=== PATIENT | female | born 1935 | race Caucasian/White ===

== ENCOUNTER 2023-06-15 21:09 | Emergency (ER) | payer MEDICARE, SELFPAY ==
[2023-06-15 21:16] VITALS: BP 144/74; PULSE 97; RESP 16; TEMP 37.7; O2SAT 95; BMI 39.9
--- NOTE | 2023-06-15 21:18 | CT_ITS ---
The [address] [address] Patient Name: DB PRADHAN MRN: [id number] date: 1935 Sex: F Assigned Patient Location: ER Current Patient Location: Accession/Order Number: [id number] Exam Date: 06/15/2023 22:43 Report Date: 06/15/2023 23:22 At the request of: WILLIE CH Procedure: CT abdomen pelvis w con CT OF THE ABDOMEN AND PELVIS WITH CONTRAST: 06/15/2023 10:43 PM EST CLINICAL HISTORY: Diarrhea. COMPARISONS: None. TECHNIQUE: Thin section axial CT images were obtained from the lung bases to the pubis symphysis. This CT exam was performed using one or more of the following dose reduction techniques: Automated exposure control, adjustment of the mA and/or kV according to patient size, or use of iterative reconstruction technique. Thin section coronal and sagittal images were reconstructed from the axial data set. All images were reviewed and interpreted. CONTRAST: Intravenous contrast was administered. Type and amount is documented at the local institution. FINDINGS: LUNG BASES: No consolidation or pleural fluid. Calcified right hilar lymph nodes. Mitral valvular calcifications. Mild cardiac chamber enlargement. LIVER: Severe diffuse hepatic steatosis. Scattered punctate calcified granulomas. No liver mass or cyst. GALLBLADDER: Cholecystectomy. BILIARY TREE: No ductal dilatation. PANCREAS: Normal. SPLEEN: Scattered calcified splenic granulomas. Spleen otherwise negative. ADRENALS: Normal. KIDNEYS: Normal, without urolithiasis or hydronephrosis. URINARY BLADDER: Grossly unremarkable. PELVIC STRUCTURES: Unremarkable. BOWEL: Scattered fluid filled nondistended small bowel loops and fluid within nondistended proximal right colon. No overt wall thickening of small or large bowel. No luminal filling defects. There is extensive mostly descending sigmoid diverticulosis. There is no evidence of diverticulitis. APPENDIX: Negative. LYMPH NODES: No pathologically enlarged lymph nodes identified. PERITONEUM: No intraperitoneal free air. No free intraperitoneal fluid. MESENTERY: Unremarkable. RETROPERITONEUM: The retroperitoneum is unremarkable. AORTA: Normal in caliber. IVC: Retroverted coarse left renal vein. BODY WALL: No body wall mass. OSSEOUS STRUCTURES: Left hip arthroplasty. 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 Diffuse endplate spondylosis and facet arthropathy. No lytic or blastic bone lesion or acute fracture. CT/CT abdomen pelvis w con IMPRESSION: 1. Nonspecific bowel appearance with fluid in nondistended small bowel loops and right hemicolon, likely reflecting some nonspecific secretory diarrhea. Uncertain etiology. 2. Colonic diverticulosis. No acute diverticulitis. 3. Hepatic steatosis. 4. Cholecystectomy. 5. 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 Electronically authenticated by: LISBET CASSIDY Date: 06/15/2023 23:22
--- NOTE | 2023-06-15 21:19 | ED.NAVMDI1 ---
Documented by User: [email or web address] Shi 06/15/23 21:23 HPI - Nausea/Vomiting/Diarrhea General Chief complaint: Nausea/Vomiting/Diarrhea Stated complaint: NAUSEA Time Seen by Provider: 06/15/23 21:17 History of Present Illness HPI Narrative: Patient is an 87-year-old female who presents to the emergency department by ambulance for the evaluation of vomiting and diarrhea throughout the day today. She states the diarrhea is much more significant than the vomiting. She reports approximately 6 episodes of vomiting throughout the day today, she states she is having diarrhea at least every 20 minutes. She states the diarrhea is now very watery. She recently received an iron infusion and her stools have been black, this is not new today. She does have cramping in the abdomen. 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 She states the incision broke open before today and has been slow healing, this is known to her physician. She states today with all the diarrhea and abdominal cramping, she is having increased pain to the area of the vulva surgical incision dehiscence. She states her daughter and son-in-law are also sick with the same symptoms, they were at a libertarian over the weekend. Patient has had a previous cholecystectomy and hysterectomy. She has never had any issues with colitis or diverticulitis. No objective fevers or upper respiratory symptoms. She denies chest pain. Related Data Home Medications Medication Instructions Recorded Confirmed acyclovir 5 % topical cream 1 applic topical PRN 06/15/23 06/15/23 bisoprolol 5 1 tab PO QDAY 06/15/23 06/15/23 mg-hydrochlorothiazide 6.25 mg tablet celecoxib 200 mg capsule 200 mg PO Q24H 06/15/23 06/15/23 conjugated estrogens 0.625 mg/gram 0.625 mg vaginal .2 x weekly 06/15/23 06/15/23 vaginal cream (Premarin) famciclovir 250 mg tablet 250 mg PO Q12H 06/15/23 06/15/23 furosemide 20 mg tablet 20 mg PO DAILY 06/15/23 06/15/23 gabapentin 100 mg capsule 100 mg PO Q8H 06/15/23 06/15/23 lidocaine-prilocaine 2.5 %-2.5 % 1 applic topical PRN 06/15/23 06/15/23 topical cream pantoprazole 40 mg tablet,delayed 40 mg PO DAILY 06/15/23 06/15/23 release rosuvastatin 10 mg tablet 10 mg PO DAILY 06/15/23 06/15/23 triamcinolone acetonide 0.5 % 1 applic topical PRN 06/15/23 06/15/23 topical cream Previous Rx's Medication Instructions Recorded ondansetron 4 mg disintegrating 4 mg PO Q6H PRN nausea and 06/15/23 tablet vomiting #14 tabs Allergies Allergy/AdvReac Type Severity Reaction Status Date / Time Sulfa (Sulfonamide Allergy Verified 06/15/23 21:14 Antibiotics) Review of Systems ROS Constitutional Denies: fever or chills Ears, nose, mouth, and throat Denies: throat pain or nasal congestion Cardiovascular Denies: chest pain Respiratory Denies: shortness of breath or cough Gastrointestinal Reports: abdominal pain, nausea, vomiting and diarrhea Genitourinary Reports: pelvic pain; Denies: painful urination Musculoskeletal Denies: back pain Integumentary/Breast Denies: rash Neurological Denies: headache Endocrine Denies: excessive urination [facility] Social History Smoking status: Never smoker Exam Narrative Exam Narrative: Gen.: Awake, alert, in no distress Head: Normocephalic, atraumatic ENT: Moist mucous membranes Respiratory: No respiratory distress, lungs clear bilaterally Cardio: Regular rate and rhythm Gastrointestinal: Abdomen is soft, Distended without rigidity and nontender to palpation, no guarding or rebound Extremities: Moves extremities equally Psych: Normal mood and affect Neuro: No focal neuro deficit Skin: Warm, dry, intact Constitutional Vital Signs, click to edit/add: Last Vital Signs Temp 99.8 F 06/15/23 21:16 Pulse 97 H 06/15/23 21:16 Resp 16 06/15/23 21:16 BP 150/78 H 06/15/23 21:55 Pulse Ox 96 06/15/23 23:14 O2 Del Method Room Air 06/15/23 23:14 O2 Flow Rate 1 06/15/23 21:55 Course Vital Signs Vital signs: Vital Signs Temperature 99.8 F 06/15/23 21:16 Pulse Rate 97 H 06/15/23 21:16 Respiratory Rate 16 06/15/23 21:16 Blood Pressure 144/74 H 06/15/23 21:16 Pulse Oximetry 95 06/15/23 21:16 Oxygen Delivery Method Nasal Cannula 06/15/23 21:16 Oxygen Delivery Flow Rate 2 06/15/23 21:16 Temperature 99.8 F 06/15/23 21:16 Pulse Rate 97 H 06/15/23 21:16 Respiratory Rate 16 06/15/23 21:16 Blood Pressure 150/78 H 06/15/23 21:55 Pulse Oximetry 96 06/15/23 23:14 Oxygen Delivery Method Room Air 06/15/23 23:14 Oxygen Delivery Flow Rate 1 06/15/23 21:55 MDM - Nausea/Vomiting/Diarrhea MDM Narrative Medical decision making narrative: 2121: I ordered for this patient to have IV fluids, pain medication, nausea medication as well as lab testing, urine testing, stool testing, CT of the abdomen and pelvis. At this time her vital signs are stable. She was placed on a nasal cannula by EMS. All of the patient's results are pending at this time and case will be turned over to attending physician for disposition. Medical Records Attestation: I reviewed the patient's medical records. Lab Data Attestation: I reviewed the patient's lab results. Labs: Lab Results 06/15/23 06/15/23 06/15/23 Range/Units 21:34 21:35 21:49 WBC 8.4 (4.0-11.0) 10^3/uL RBC 3.32 L (4.20-5.40) 10^6/uL Hgb 10.5 L (12.0-16.0) g/dL Hct 35.0 L (36.0-48.0) % MCV 105.4 H (81.0-99.0) fL MCH 31.6 (26.7-34.0) pg MCHC 30.0 (29.9-35.2) g/dL RDW 23.6 H (11.0-15.0) % Plt Count 167 (150-450) 10^3/uL MPV 9.3 L (9.5-13.5) fL Seg Neuts % (Manual) 89.0 Band Neutrophils % 9.0 H (0-5) % Lymphocytes % (Manual) 1.0 L (20.5-60.0) % Monocytes % (Manual) 1.0 L (1.7-12.0) % Eosinophils % (Manual) 0.0 L (0.9-7.0) % Basophils % (Manual) 0.0 L (0.2-2.0) % Neutrophils # (Manual) 7.47 H (1.4-6.5) 10^3/uL Band Neutrophils # 0.8 H (0.0-0.3) 10^3/uL Lymphocytes # (Manual) 0.08 L (1.20-3.80) 10^3/uL Monocytes # (Manual) 0.08 L (0.30-0.80) 10^3/uL Eosinophils # (Manual) 0.00 (0.00-0.70) 10^3/uL Basophils # (Manual) 0.00 (0.00-0.10) 10^3/uL Sodium 142 (136-145) mmol/L Potassium 3.5 (3.5-5.1) mmol/L Chloride 107 (98-107) mmol/L Carbon Dioxide 23.5 (21.0-32.0) mmol/L Anion Gap 15.0 BUN 36.0 H (7.0-18.0) mg/dL Creatinine 1.31 H (0.55-1.02) mg/dL Est GFR ( Amer) 46 L (>=60) Est GFR (Non-Af Amer) 38 L (>=60) BUN/Creatinine Ratio 27.5 Glucose 142 H (74-106) mg/dL Lactate 1.6 (0.4-2.0) mmol/L Calcium 8.4 L (8.5-10.1) mg/dL Total Bilirubin 0.3 (0.2-1.0) mg/dL AST 22 (15-37) U/L ALT 24 (14-59) U/L Alkaline Phosphatase 43 L (46-116) U/L Total Protein 7.0 (6.4-8.2) g/dL Albumin 3.1 L (3.4-5.0) g/dL Globulin 3.9 g/dL Albumin/Globulin Ratio 0.8 Lipase 26.0 (16.0-77.0) U/L Stl C. cayetanensis PCR Not detected (NOT DETECTE) Stool Rotavirus (PCR) Not detected (NOT DETECTE) Stool Adenovirus (PCR) Not detected (NOT DETECTE) Stool Astrovirus (PCR) Not detected (NOT DETECTE) Stool Campylobacter PCR Not detected (NOT DETECTE) Stool Cryptosporidium PCR Not detected (NOT DETECTE) St Sh/Enteroin Ecoli PCR Not detected (NOT DETECTE) Stl Enterotoxigenic E PCR Not detected (NOT DETECTE) Stool EPEC (PCR) Not detected (NOT DETECTE) Stl E. histolytica PCR Not detected (NOT DETECTE) Stool Giardia Lamblia PCR Not detected (NOT DETECTE) Stl P. shigelloides PCR Not detected (NOT DETECTE) Stool Salmonella PCR Not detected (NOT DETECTE) Stool Sapovirus (PCR) Not detected (NOT DETECTE) Stl Shiga-like Tx 1 PCR Not detected (NOT DETECTE) St Y.enterocolitica PCR Not detected (NOT DETECTE) Stl Vibrio cholerae PCR Not detected (NOT DETECTE) Stl Enteroaggr Ecoli PCR Not detected (NOT DETECTE) Stl Norovirus GI/GII PCR Detected A (NOT DETECTE) C. difficile Toxin A&B Not detected (NOT DETECTE) Influenza Type A Ag Negative Influenza Type B Ag Negative SARS-CoV-2 Ag (CV2AG) Negative (NEGATIVE) Vibrio Culture Not detected (NOT DETECTE) Imaging Data CT scan - abdomen: Radiologist's impression: ITS Impressions Abdomen/Pelvis CT 06/15/23 21:18 IMPRESSION: 1. Nonspecific bowel appearance with fluid in nondistended small bowel loops and right hemicolon, likely reflecting some nonspecific secretory diarrhea. Uncertain etiology. 2. Colonic diverticulosis. No acute diverticulitis. 3. Hepatic steatosis. 4. Cholecystectomy. 5. 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 Electronically authenticated by: LISBET CASSIDY Date: 06/15/2023 23:22 Discharge Plan Discharge Chief Complaint: Nausea/Vomiting/Diarrhea Clinical Impression: Gastroenteritis Patient Disposition: Home, Self-Care Time of Disposition Decision: 23:33 Prescriptions / Home Meds: New ondansetron 4 mg tablet,disintegrating 4 mg PO Q6H PRN (Reason: nausea and vomiting) Qty: 14 0RF No Action bisoprolol-hydrochlorothiazide 5-6.25 mg tablet 1 tab PO QDAY celecoxib 200 mg capsule 200 mg PO Q24H Premarin 0.625 mg/gram cream 0.625 mg vaginal .2 x weekly famciclovir 250 mg tablet 250 mg PO Q12H furosemide 20 mg tablet 20 mg PO DAILY lidocaine-prilocaine 2.5-2.5 % cream 1 applic topical PRN pantoprazole 40 mg tablet,delayed release (DR/EC) 40 mg PO DAILY rosuvastatin 10 mg tablet 10 mg PO DAILY triamcinolone acetonide 0.5 % cream 1 applic TOPICAL PRN acyclovir 5 % cream 1 applic TOPICAL PRN gabapentin 100 mg capsule 100 mg PO Q8H Instructions: Clear Liquid Diet (ED), Gastroenteritis (ED) Stand Alone Forms: Portal Instructions Documented by User: Matthieu Bae 06/15/23 23:34 HPI - Nausea/Vomiting/Diarrhea General Chief complaint: Nausea/Vomiting/Diarrhea Stated complaint: NAUSEA Time Seen by Provider: 06/15/23 21:17 Related Data Home Medications Medication Instructions Recorded Confirmed acyclovir 5 % topical cream 1 applic topical PRN 06/15/23 06/15/23 bisoprolol 5 1 tab PO QDAY 06/15/23 06/15/23 mg-hydrochlorothiazide 6.25 mg tablet celecoxib 200 mg capsule 200 mg PO Q24H 06/15/23 06/15/23 conjugated estrogens 0.625 mg/gram 0.625 mg vaginal .2 x weekly 06/15/23 06/15/23 vaginal cream (Premarin) famciclovir 250 mg tablet 250 mg PO Q12H 06/15/23 06/15/23 furosemide 20 mg tablet 20 mg PO DAILY 06/15/23 06/15/23 gabapentin 100 mg capsule 100 mg PO Q8H 06/15/23 06/15/23 lidocaine-prilocaine 2.5 %-2.5 % 1 applic topical PRN 06/15/23 06/15/23 topical cream pantoprazole 40 mg tablet,delayed 40 mg PO DAILY 06/15/23 06/15/23 release rosuvastatin 10 mg tablet 10 mg PO DAILY 06/15/23 06/15/23 triamcinolone acetonide 0.5 % 1 applic topical PRN 06/15/23 06/15/23 topical cream Previous Rx's Medication Instructions Recorded ondansetron 4 mg disintegrating 4 mg PO Q6H PRN nausea and 06/15/23 tablet vomiting #14 tabs Allergies Allergy/AdvReac Type Severity Reaction Status Date / Time Sulfa (Sulfonamide Allergy Verified 06/15/23 21:14 Antibiotics) [facility] Social History Smoking status: Never smoker Exam Constitutional Vital Signs, click to edit/add: Last Vital Signs Temp 99.8 F 06/15/23 21:16 Pulse 97 H 06/15/23 21:16 Resp 16 06/15/23 21:16 BP 150/78 H 06/15/23 21:55 Pulse Ox 96 06/15/23 23:14 O2 Del Method Room Air 06/15/23 23:14 O2 Flow Rate 1 06/15/23 21:55 Course Vital Signs Vital signs: Vital Signs Temperature 99.8 F 06/15/23 21:16 Pulse Rate 97 H 06/15/23 21:16 Respiratory Rate 16 06/15/23 21:16 Blood Pressure 144/74 H 06/15/23 21:16 Pulse Oximetry 95 06/15/23 21:16 Oxygen Delivery Method Nasal Cannula 06/15/23 21:16 Oxygen Delivery Flow Rate 2 06/15/23 21:16 Temperature 99.8 F 06/15/23 21:16 Pulse Rate 97 H 06/15/23 21:16 Respiratory Rate 16 06/15/23 21:16 Blood Pressure 150/78 H 06/15/23 21:55 Pulse Oximetry 96 06/15/23 23:14 Oxygen Delivery Method Room Air 06/15/23 23:14 Oxygen Delivery Flow Rate 1 06/15/23 21:55 MDM - Nausea/Vomiting/Diarrhea MDM Narrative Medical decision making narrative: 2121: I ordered for this patient to have IV fluids, pain medication, nausea medication as well as lab testing, urine testing, stool testing, CT of the abdomen and pelvis. At this time her vital signs are stable. She was placed on a nasal cannula by EMS. All of the patient's results are pending at this time and case will be turned over to attending physician for disposition. For this patient encounter I reviewed the mid-level provider?s documentation, medical decision-making and treatment plan, and I personally spent time with this patient. Shared APC visit, physician attestation: [id number]: This visit was performed by both a physician and an APC. I personally evaluated and examined the patient. I performed all aspects of MDM as documented. - Betty, DO The patient was exposed to a family member with similar symptoms who had been ill about 12 hours earlier. Exam is without any worrisome findings. Unremarkable CBC with normal white blood cell count and hemoglobin 10.5. Swabs for COVID and influenza were negative. Lactate negative. CMP notable for normal LFTs, unremarkable electrolytes, increased BUN/creatinine at 36 and 1.3, glucose 142. GI panel is pending. CT abdomen pelvis = findings consistent with the patient's symptoms of gastroenteritis without any sign of obstruction or other acutely worrisome abnormalities. Results explained to the patient. She felt better after emergency department discharge and was able to be discharged home with prescription for Zofran. We also discussed clear liquid diet and reasons to return to the emergency department Lab Data Labs: Lab Results 06/15/23 06/15/23 06/15/23 Range/Units 21:34 21:35 21:49 WBC 8.4 (4.0-11.0) 10^3/uL RBC 3.32 L (4.20-5.40) 10^6/uL Hgb 10.5 L (12.0-16.0) g/dL Hct 35.0 L (36.0-48.0) % MCV 105.4 H (81.0-99.0) fL MCH 31.6 (26.7-34.0) pg MCHC 30.0 (29.9-35.2) g/dL RDW 23.6 H (11.0-15.0) % Plt Count 167 (150-450) 10^3/uL MPV 9.3 L (9.5-13.5) fL Seg Neuts % (Manual) 89.0 Band Neutrophils % 9.0 H (0-5) % Lymphocytes % (Manual) 1.0 L (20.5-60.0) % Monocytes % (Manual) 1.0 L (1.7-12.0) % Eosinophils % (Manual) 0.0 L (0.9-7.0) % Basophils % (Manual) 0.0 L (0.2-2.0) % Neutrophils # (Manual) 7.47 H (1.4-6.5) 10^3/uL Band Neutrophils # 0.8 H (0.0-0.3) 10^3/uL Lymphocytes # (Manual) 0.08 L (1.20-3.80) 10^3/uL Monocytes # (Manual) 0.08 L (0.30-0.80) 10^3/uL Eosinophils # (Manual) 0.00 (0.00-0.70) 10^3/uL Basophils # (Manual) 0.00 (0.00-0.10) 10^3/uL Sodium 142 (136-145) mmol/L Potassium 3.5 (3.5-5.1) mmol/L Chloride 107 (98-107) mmol/L Carbon Dioxide 23.5 (21.0-32.0) mmol/L Anion Gap 15.0 BUN 36.0 H (7.0-18.0) mg/dL Creatinine 1.31 H (0.55-1.02) mg/dL Est GFR ( Amer) 46 L (>=60) Est GFR (Non-Af Amer) 38 L (>=60) BUN/Creatinine Ratio 27.5 Glucose 142 H (74-106) mg/dL Lactate 1.6 (0.4-2.0) mmol/L Calcium 8.4 L (8.5-10.1) mg/dL Total Bilirubin 0.3 (0.2-1.0) mg/dL AST 22 (15-37) U/L ALT 24 (14-59) U/L Alkaline Phosphatase 43 L (46-116) U/L Total Protein 7.0 (6.4-8.2) g/dL Albumin 3.1 L (3.4-5.0) g/dL Globulin 3.9 g/dL Albumin/Globulin Ratio 0.8 Lipase 26.0 (16.0-77.0) U/L Stl C. cayetanensis PCR Not detected (NOT DETECTE) Stool Rotavirus (PCR) Not detected (NOT DETECTE) Stool Adenovirus (PCR) Not detected (NOT DETECTE) Stool Astrovirus (PCR) Not detected (NOT DETECTE) Stool Campylobacter PCR Not detected (NOT DETECTE) Stool Cryptosporidium PCR Not detected (NOT DETECTE) St Sh/Enteroin Ecoli PCR Not detected (NOT DETECTE) Stl Enterotoxigenic E PCR Not detected (NOT DETECTE) Stool EPEC (PCR) Not detected (NOT DETECTE) Stl E. histolytica PCR Not detected (NOT DETECTE) Stool Giardia Lamblia PCR Not detected (NOT DETECTE) Stl P. shigelloides PCR Not detected (NOT DETECTE) Stool Salmonella PCR Not detected (NOT DETECTE) Stool Sapovirus (PCR) Not detected (NOT DETECTE) Stl Shiga-like Tx 1 PCR Not detected (NOT DETECTE) St Y.enterocolitica PCR Not detected (NOT DETECTE) Stl Vibrio cholerae PCR Not detected (NOT DETECTE) Stl Enteroaggr Ecoli PCR Not detected (NOT DETECTE) Stl Norovirus GI/GII PCR Detected A (NOT DETECTE) C. difficile Toxin A&B Not detected (NOT DETECTE) Influenza Type A Ag Negative Influenza Type B Ag Negative SARS-CoV-2 Ag (CV2AG) Negative (NEGATIVE) Vibrio Culture Not detected (NOT DETECTE) Imaging Data CT scan - abdomen: Radiologist's impression: ITS Impressions Abdomen/Pelvis CT 06/15/23 21:18
[2023-06-15] MEDS: MORPHINE SULFATE 2 MG/ML SYRINGE IV (21:37)
[2023-06-15] MEDS: HYOSCYAMINE SULFATE 0.125 MG TAB.SUBL SL (21:37)
[2023-06-15] MEDS: ONDANSETRON PF 4 MG/2 ML VIAL IV (21:37)
[2023-06-15 21:46] LABS: Hemoglobin 10.5 g/dL (12.0-16.0); Mean Corpuscular Hemoglobin 31.6 pg (26.7-34.0); Mean Corpuscular Volume 105.4 fL (81.0-99.0); Mean Platelet Volume 9.3 fL (9.5-13.5); Platelet Count 167 10^3/uL (150-450); Red Blood Count 3.32 10^6/uL (4.20-5.40); Red Cell Distribution Width 23.6 % (11.0-15.0); White Blood Count 8.4 10^3/uL (4.0-11.0)
[2023-06-15 21:53] LABS: Adenovirus F 40/41 NOT DETECTED (NOT DETECTE); Astrovirus NOT DETECTED (NOT DETECTE); Campylobacter NOT DETECTED (NOT DETECTE); Cryptosporidium NOT DETECTED (NOT DETECTE); Cyclospora cayetanensis NOT DETECTED (NOT DETECTE); Entamoeba histolytica NOT DETECTED (NOT DETECTE); Enteroaggregative E.coli NOT DETECTED (NOT DETECTE); Enteropathogenic E.coli NOT DETECTED (NOT DETECTE); Enterotoxigenic E. coli NOT DETECTED (NOT DETECTE); Giardia lamblia NOT DETECTED (NOT DETECTE); Plesiomonas shigelloides NOT DETECTED (NOT DETECTE); Rotavirus A NOT DETECTED (NOT DETECTE); Salmonella NOT DETECTED (NOT DETECTE); Sapovirus NOT DETECTED (NOT DETECTE); Shiga-like toxin-producing E.C NOT DETECTED (NOT DETECTE); Shigella/Enteroinvasive E.coli NOT DETECTED (NOT DETECTE); Vibrio NOT DETECTED (NOT DETECTE); Vibrio cholerae NOT DETECTED (NOT DETECTE); Yersinia enterocolitica NOT DETECTED (NOT DETECTE)
[2023-06-15 21:54] VITALS: O2SAT 89
[2023-06-15 21:55] VITALS: BP 150/78; O2SAT 96
[2023-06-15 21:58] LABS: Influenza Virus A Antigen Negative; Influenza Virus B Antigen Negative; Internal Control Within Normal Limits; SARS-CoV-2 Ag NEGATIVE (NEGATIVE)
[2023-06-15 22:10] LABS: Lactate/Lactic Acid 1.6 mmol/L (0.4-2.0)
[2023-06-15 22:17] LABS: Alanine Aminotransferase 24 U/L (14-59); Albumin Globulin Ratio 0.8; Albumin Level 3.1 g/dL (3.4-5.0); Alkaline Phosphatase 43 U/L (46-116); Aspartate Amino Transferase 22 U/L (15-37); BUN Creatinine Ratio 27.5; Bilirubin Total 0.3 mg/dL (0.2-1.0); Calcium 8.4 mg/dL (8.5-10.1); Carbon Dioxide 23.5 mmol/L (21.0-32.0); Chloride 107 mmol/L (98-107); Estimated GFR (African America 46 (>=60); Estimated GFR (Non-African Ame 38 (>=60); Globulin 3.9 g/dL; Glucose 142 mg/dL (74-106); Potassium 3.5 mmol/L (3.5-5.1); Sodium 142 mmol/L (136-145)
[2023-06-15 22:35] LABS: Band Neutrophils Absolute 0.8 10^3/uL (0.0-0.3); Lymphocytes Absolute Manual 0.08 10^3/uL (1.20-3.80); Monocytes Absolute Manual 0.08 10^3/uL (0.30-0.80); Segmented Neut Absolute Manual 7.47 10^3/uL (1.4-6.5)
[2023-06-15 23:14] VITALS: O2SAT 96
--- NOTE | 2023-06-15 23:14 | PC.NURSE ---
took pt off oxygen to evaluate pt's sp02 on room air. Fluctuates between 90-96% on room air
[2023-06-15 23:21] LABS: Norovirus GI/GII DETECTED (NOT DETECTE)
[2023-06-16] MEDS: ONDANSETRON 4 MG RAPDIS TABLET SL (00:06)
== END 2023-06-16 00:10 | disposition home or self-care (01) ==
PROVIDERS: Physician Assistant; Emergency Provider Emergency Medicine
DX: K52.9 Noninfective gastroenteritis and colitis, unspecified (principal); C51.9 Malignant neoplasm of vulva, unspecified; Z90.49 Acquired absence of other specified parts of digestive tract; Z90.710 Acquired absence of both cervix and uterus; Z79.899 Other long term (current) drug therapy; K57.30 Diverticulosis of large intestine without perforation or abscess without bleeding; K76.0 Fatty (change of) liver, not elsewhere classified
CPT/HCPCS: 36415; 74177; 80053; 83605; 83690; 85007; 85027; 87507; 87804; 87811; 96374; 96375; 99285; J2270; J2405; Q0162; Q9967